=== PATIENT | female | born 1970 | race African-American/Black ===

== ENCOUNTER 2016-10-25 11:22 | Outpatient (CLI) | payer BC ==
[~2016-10-25] VITALS: Ht 170.2 cm; Wt 88.5 kg
[2016-10-25] MEDS ORDERED: ESTR1TAB24 PO (13:18)
== END 2016-10-25 13:19 ==
LOC: PREOP 11:22
PROVIDERS: ATTEND Podiatrist Foot & Ankle Surgery
DX: Z01.818 Encounter for other preprocedural examination (principal); M20.12 Hallux valgus (acquired), left foot

== ENCOUNTER 2016-11-05 06:04 | Day surgery (SDC) | payer BC ==
[~2016-11-05] VITALS: Ht 170.2 cm; Wt 88.5 kg
[~2016-11-05 06:04] MED LIST: ESTR1TAB24 PO
[2016-11-05] MEDS ORDERED: ceFAZolin 1,000 MG (ANCEF) VIAL ONE (06:06)
[2016-11-05] MEDS ORDERED: NS (IVPB) 50 ML ONE (06:07)
[2016-11-05 06:20] VITALS: BP 123/94
[2016-11-05] MEDS: LACTATED RINGERS 1,000 ML IV PRN ×2 (06:42→08:54)
[2016-11-05] MEDS ORDERED: CATHETER FLUSH 10 ML SYR IV PRN (06:45)
[2016-11-05] MEDS ORDERED: ceFAZolin 1 GM/NS 50 ML IVPB IV ONE ×2 (06:45)
[2016-11-05] MEDS ORDERED: LIDOCAINE JELLY 2% (XYLOCAINE) 5 ML TUBE ONE (06:48)
[2016-11-05] MEDS ORDERED: ONDANSETRON 4 MG/2 ML (SDV) Z0FRAN ONE (06:48)
[2016-11-05] MEDS ORDERED: proPOfol 200 MG/20 ML (DIPRIVAN) VIAL IV ONE (06:48)
[2016-11-05] MEDS ORDERED: fentaNYL INJECTION 100 MCG/2 ML AMP ONE (06:48)
[2016-11-05] MEDS ORDERED: LACTATED RINGERS 1,000 ML IV ONE (06:48)
[2016-11-05] MEDS ORDERED: ROCURONIUM 50 MG/5 ML (ZEMURON) VIAL IV ONE (06:48)
[2016-11-05] MEDS ORDERED: LIDOCAINE PF 2% 10 ML (XYLOCAINE) AMP ONE (06:48)
[2016-11-05] MEDS ORDERED: MIDAZOLAM 2 MG/2 ML (VERSED) VIAL ONE (06:49)
[2016-11-05] MEDS ORDERED: LIDOCAINE 1% INJ 20 ML (XYLOCAINE) VIAL ONE (07:18)
[2016-11-05] MEDS ORDERED: BUPIVACAINE 0.5% 30 ML (SENSORCAINE) VIAL ONE (07:18)
[2016-11-05] MEDS ORDERED: DEXAMETHASONE PF 10 MG/ML (DECADRON) VIAL ONE (07:18)
--- NOTE | 2016-11-05 07:42 | Progress Note-Pre Operative ---
Pre-Operative Progress Note H&P Reviewed The H&P was reviewed, patient examined and no changes noted. Date H&P Reviewed: Nov 05, 2016 Time H&P Reviewed: 07:35 Pre-Operative Diagnosis: Hallux Valgus left SHANIQUE MUSA DPM Nov 05, 2016 7:42 am
[2016-11-05] MEDS ORDERED: SEVOFLURANE (ULTANE) 15 ML INHAL SOLN ONE ×2 (08:08→09:23)
[2016-11-05] MEDS ORDERED: MEPERIDINE (DEMEROL) INJ 50 MG/ML IVP PRN (09:00)
[2016-11-05] MEDS ORDERED: ONDANSETRON 4 MG/2 ML (SDV) Z0FRAN IVP PRN ×2 (09:00→09:15)
[2016-11-05] MEDS ORDERED: morphine INJ 10 MG/ML 1ML (SYR OR VIAL) IVP PRN (09:00)
[2016-11-05] MEDS ORDERED: LACTATED RINGERS 1,000 ML IV SCH (09:12)
--- NOTE | 2016-11-05 09:12 | Progress Note-Post Operative ---
Post-Operative Progess Note Surgeon (s)/Registered Midwife (s) Surgeon SHANIQUE MUSA DPM Registered Midwife: NONE Pre-Operative Diagnosis Hallux Valgus left Post-Operative Diagnosis Same Post-Op Procedure Note Date of Procedure: Nov 05, 2016 Name of Procedure Performed: Modified Olvin-Chano bunionectomy left Description of the Procedure: Reduction of bunion left Findings of the Procedure Good reduction of deformity Anesthesia Type General Estimated blood loss (mL): Minimal Packing: None Specimen(s) collected/removed None SHANIQUE MUSA DPM Nov 05, 2016 9:12 am
[2016-11-05] MEDS ORDERED: HYDROcodone/APAP 5 MG/325 MG (LORTAB) TAB PO PRN (09:15)
[2016-11-05] MEDS ORDERED: HYDR-3812 PO (09:15)
[2016-11-05] MEDS ORDERED: CEPH500C PO (09:15)
[2016-11-05 10:10] VITALS: BP 111/81
[2016-11-05 10:40] VITALS: BP 119/90
--- NOTE | 2016-11-05 10:52 | Diagnostic Imaging Report ---
EXAMINATION: 2 views of the left foot. INDICATION: Post bunionectomy. FINDINGS: There is post osteotomies and internal fixation changes seen in the distal first metatarsal and proximal phalanx of the great toe in good alignment. Postoperative changes seen. IMPRESSION: Postoperative changes about the first metatarsal and joint with osteotomies and internal fixation in good position. Dictated by: Dictated on workstation # [id number]
[2016-11-05 11:10] VITALS: BP 118/85
[2016-11-05 11:39] VITALS: BP 118/85
--- NOTE | 2016-11-05 12:12 | Physical Therapy Ortho Eval ---
PT Orthopedic Evaluation Type of Surgery hallux valgus right Prior Level of Function Current Living Status: Spouse Locomotion (Upon Admit): Independent knee scooter and plans to get crutches Subjective Subjective Agreeable to PT. No complaints Entry Into Home: Stairs Without Railing Steps Into Home: 3 Motor Control Motor Control: Motor Control WNL ROM ROM: WFL Strength Strength: WFL Transfer Transfers (B, C, W/C) (FIM): 5 (post eval/treat she was indep) Gait Gait Assistive Device: Crutches Weight Bearing Restriction: Non Weight Bearing Location Restriction: R LE Gait (FIM): 5 (post eval/treat she was mod indep) Summary/Comments safe gait with crutches NWB right LE. No noted LOB episodes. Up/down curb step x 3 reps with SBA. Assessment/Goals Goal Time Frame: 1 Visit Plan Treatment Plan: Discharge PT/Family Agrees to Plan: Yes Time Time In: 1115 Time Out: 1135 Total Billed Treatment Time: 20 Billed Treatment Time visit EVL 20 JOSE WALLACE PT Nov 05, 2016 12:12
--- NOTE | 2016-11-06 08:15 | OPERATIVE REPORT ---
DATE OF SERVICE: 11/05/2016 PREOPERATIVE DIAGNOSIS: Hallux abducto valgus metatarsus primus varus, left. POSTOPERATIVE DIAGNOSIS: Hallux abducto valgus metatarsus primus varus, left. PROCEDURE: Modified Olvin Chano bunionectomy left. CLASS: Clean. ANESTHESIA: General. HEMOSTASIS: Pneumatic thigh tourniquet at 300 mmHg. INDICATION: This 46-year-old female presents complaining of painful bunion left foot, conservative therapy is met with unsatisfactory results and the patient is agreeable to surgical intervention after risks and complications were discussed at length. No guarantees were extended to the patient and she is willing to proceed. PROCEDURE: The patient was brought back to the operating table, placed in secure supine position. Appropriate timeout was performed. Pneumatic thigh tourniquet was placed over the left lower extremity over several layers of padding. The left foot was then prepped and draped in a normal sterile manner. The left foot was then elevated and allowed to exsanguinate after which the tourniquet was inflated to 300 mmHg. Attention was then directed to the dorsal aspect of the left first metatarsal phalangeal joint where a 6 cm longitudinal linear incision was created. The incision was deepened in the same plane with great care to identify and retract all vital neurovascular structures. Only necessary blood vessels were cauterized as encountered. The incision was deepened to the capsular tissue where a longitudinal capsulotomy was performed exposing the hypertrophic medial eminence of the first metatarsal head. The medial eminence of the first metatarsal head was then resected utilizing the Palmar sagittal saw. Next a lateral release was then performed. The conjoin tendon of the adductor hallus was released as well as the fibular sesamoidal ligament and a lateral capsulorrhaphy was performed. The hallux was then forcibly adducted releasing any additional fibers holding it in its abnormal position. Attention was then redirected to the medial aspect of the first metatarsal head where a chevron type osteotomy was performed at the surgical neck allowing the capital fragment to translocate laterally and was fixated in its corrected position with a 0.062 threaded K-wire driven from dorsal proximal to plantar distal across the osteotomy. The remaining medial image of the first metatarsal head and dorsal eminence to the first metatarsal head was resected with a power sagittal saw and further contoured and smoothed with a power nathan. The wound was flushed with copious amounts of normal saline. Attention was then directed to the diaphysis of the proximal phalanx left hallux where subperiosteal dissection was carried out. A wedge of bone was resected with the base medial and lateral cortices held intact. A ship pilot hole was created at the dorsal medial aspect of the osteotomy allowing a 28 gauge monofilament wire to pass through the ship pilot hole securing the osteotomy in a closed position. The wound was flushed with copious amounts of normal saline throughout the procedure. One final flush was then performed and closure was then performed in layers. Deep closure was performed with 3-0 Vicryl, superficial with 4-0 Vicryl, skin closure with 4-0 Prolene in a horizontal mattress type stitch. Postoperative injection consisted of 17 mL of 0.5% Marcaine injected in local infusion to the surgical site. The tourniquet was released and noted appropriate capillary refill time to all digits of the left foot. Postoperative dressing consisted of Betadine soaked adaptic, sterile 4 x 4, sterile Kerlix, all secured with a Coban wrap. The patient tolerated the anesthesia and procedure well and was transported to the recovery room with vital signs stable and vascular status intact to all digits of the left foot. She was given a prescription for Keflex as well as Vicodin. Postoperatively, she is to follow in my office on 11/15 or sooner if necessary. She is to remain nonweightbearing with crutches in the meantime. Job ID: [id number] DocumentID: [id number] Dictated Date: 11/05/2016 09:20:37 Millinery Designer Date: 11/05/2016 11:14:41 Dictated By: SHANIQUE MUSA DPM
== END 2016-11-05 11:51 | disposition home or self-care (01) ==
LOC: SDC 06:04
PROVIDERS: ATTEND Podiatrist Foot & Ankle Surgery
DX: M20.12 Hallux valgus (acquired), left foot (principal); Z11.2 Encounter for screening for other bacterial diseases
CPT/HCPCS: 73620; 87081

== ENCOUNTER 2018-09-23 03:09 | Emergency (ER) | payer BC ==
[~2018-09-23] VITALS: Ht 170.2 cm; Wt 89.4 kg
[~2018-09-23 03:09] MED LIST changes: +ACHD5005 PO; +CEPH500C PO
[2018-09-23] MEDS ORDERED: NS IV 1000 ML 1,000 ML IV STA (03:52)
[2018-09-23] MEDS ORDERED: ONDANSETRON 4 MG/2 ML (SDV) Z0FRAN IVP STA (03:52)
[2018-09-23] MEDS ORDERED: FAMOTIDINE 20MG/2ML IV (PEPCID) IVP STA (03:59)
--- NOTE | 2018-09-23 04:06 | ED GI ---
General Chief Complaint: Abdominal/GI Problems Stated Complaint: VOMITING,DIARRHEA History of Present Illness Date Seen by Provider: Sep 23, 2018 Time Seen by Provider: 03:50 Timing/Duration: 1-3 Hours Severity/Quality: Moderate Location: Epigastric Radiation: No Radiation Activities at Onset: None Modifying Factors: Worsens With Breathing, Worsens With Movement Associated Symptoms: No Chest Pain, No Fever/Chills; Nausea/Vomiting (Diarrhea) 48-year-old female with a history of cholecystectomy, appendectomy, hysterectomy , here for nausea, vomiting, diarrhea and epigastric cramping that began tonight. Nonbilious nonbloody emesis. Nonbloody non-melanotic diarrhea. No fever or chills. No chest pain or shortness of breath. Allergies and Home Medications Allergies Coded Allergies: Sulfa (Sulfonamide Antibiotics) (Unverified Allergy, Mild, HIVES, 09/23/18) doxycycline (Unverified Allergy, Mild, NAUSEA, RASH, 09/23/18) Patient Home Medication List Home Medication List Reviewed: Yes Review of Systems Review of Systems Constitutional: no symptoms reported EENTM: No Symptoms Reported Respiratory: No Symptoms Reported Cardiovascular: No Symptoms Reported Gastrointestinal: See HPI Genitourinary: No Symptoms Reported Musculoskeletal: no symptoms reported Skin: no symptoms reported Psychiatric/Neurological: No Symptoms Reported Endocrine: No Symptoms Reported Hematologic/Lymphatic: No Symptoms Reported Past Xozeogh-Edtwks-Lnyfyn Hx Patient Social History Recent Foreign Travel: No Contact w/Someone Who Travel: No Recent Hopitalizations: No Seasonal Allergies Seasonal Allergies: Yes Past Medical History Appendectomy, Gallbladder, Hysterectomy Irritable Bowel Physical Exam Vital Signs Vital Signs - First Documented 09/23/18 03:45 Temp 96.9 Pulse 103 Resp 18 B/P (MAP) 127/85 (99) Pulse Ox 98 Capillary Refill : Height/Weight/BMI Height: 5'7.00" Weight: 195lbs. 0.0oz. [id number]; 30.5 BMI Method: General Appearance: other (intermittent vomiting of nonbilious nonbloody material) HEENT: normal ENT inspection Neck: supple Respiratory: lungs clear Cardiovascular: normal peripheral pulses, regular rate, rhythm Gastrointestinal: soft, other (mild midepigastric tenderness) Neurologic/Psychiatric: alert, oriented x 3 Skin: warm/dry Progress/Results/Core Measures Results/Orders Lab Results Laboratory Tests Test 09/23/18 04:10 09/23/18 04:44 Range/Units White Blood Count 7.2 4.3-11.0 10^3/uL Red Blood Count 5.02 4.35-5.85 10^6/uL Hemoglobin 14.4 11.5-16.0 G/DL Hematocrit 44 35-52 % Mean Corpuscular Volume 88 80-99 FL Mean Corpuscular Hemoglobin 29 25-34 PG Mean Corpuscular Hemoglobin Concent 33 32-36 G/DL Red Cell Distribution Width 13.4 10.0-14.5 % Platelet Count 261 130-400 10^3/uL Mean Platelet Volume 10.0 7.4-10.4 FL Urine Color DK YELLOW Urine Clarity CLEAR Urine pH 6.0 5-9 Urine Specific [place] 1.025 H 1.016-1.022 Urine Protein NEGATIVE NEGATIVE Urine Glucose (UA) NEGATIVE NEGATIVE Urine Ketones NEGATIVE NEGATIVE Urine Nitrite NEGATIVE NEGATIVE Urine Bilirubin NEGATIVE NEGATIVE Urine Urobilinogen 0.2 NORMAL MG/DL Urine Leukocyte Esterase NEGATIVE NEGATIVE Urine RBC (Auto) TRACE-L NEGATIVE My Orders Orders - ANILA CRISTOBAL DO Ns Iv 1000 Ml (Sodium Chloride 0.9%) (09/23/18 03:52) Ondansetron Injection (Zofran Injectio (09/23/18 03:52) Cbc No Diff (09/23/18 03:59) Comprehensive Metabolic Panel (09/23/18 03:59) Lipase (09/23/18 03:59) Urinalysis Dipstick Only (09/23/18 03:59) Famotidine Injection (Pepcid Injection) (09/23/18 03:59) Vital Signs/I&O 09/23/18 03:45 Temp 96.9 Pulse 103 Resp 18 B/P (MAP) 127/85 (99) Pulse Ox 98 Progress Progress Note #1: Progress Note Mild epigastric pain and tenderness with vomiting and diarrhea, likely viral gastroenteritis. No associated symptoms to suggest ACS and with reproducible tenderness diagnosis is even less likely. We'll check labs including lipase, LFTs, UA. We'll treat with fluids, Zofran, Pepcid. We'll reassess. Progress Note #2: Progress Note Pt feels better, tolerating orals, wants to go home. Departure Impression Primary Impression: Acute gastroenteritis Additional Impression: Dehydration Disposition: HOME, SELF-CARE Condition: Stable Departure-Patient Inst. Referrals: NANI WAYNE MD (PCP/Family) Primary Care Physician Patient Instructions: Viral Gastroenteritis, Adult (DC) Scripts Ondansetron (Ondansetron Odt) 8 Mg Tab.rapdis 8 MG PO TID PRN for NAUSEA/VOMITING-1ST LINE for 7 Days, #30 TAB Prov: ANILA CRISTOBAL DO 09/23/18 ANILA CRISTOBAL DO Sep 23, 2018 04:06
[2018-09-23] MEDS ORDERED: ESTRADIOL 1 MG TABLET (04:35)
[2018-09-23 04:37] LABS: HEMOGLOBIN 14.4 G/DL (11.5-16.0); RED CELL DISTRIBUTION WIDTH 13.4 % (10.0-14.5); WHITE BLOOD COUNT 7.2 10^3/uL (4.3-11.0)
[2018-09-23 04:55] LABS: CLARITY,URINE CLEAR; COLOR,URINE DK YELLOW; GLUCOSE, URINE (UA) NEGATIVE (NEGATIVE); KETONES,URINE NEGATIVE (NEGATIVE); NITRITE,URINE NEGATIVE (NEGATIVE); PROTEIN,URINE NEGATIVE (NEGATIVE)
[2018-09-23 04:56] LABS: BILIRUBIN,URINE NEGATIVE (NEGATIVE); LEUKOCYTE ESTERASE ,URINE NEGATIVE (NEGATIVE); UROBILINOGEN,URINE 0.2 MG/DL (NORMAL)
[2018-09-23 05:13] LABS: ALANINE AMINOTRANSFERASE 21 U/L (0-55); ALKALINE PHOSPHATASE 52 U/L (40-136); BILIRUBIN,TOTAL 0.4 MG/DL (0.1-1.0); BUN/CREATININE RATIO 24; CALCIUM 9.6 MG/DL (8.5-10.1); CARBON DIOXIDE 20 MMOL/L (21-32); CHLORIDE 100 MMOL/L (98-107); CREATININE SERUM 1.03 MG/DL (0.60-1.30); GFR ESTIMATED > 60; GLUCOSE 145 MG/DL (70-105); POTASSIUM 3.8 MMOL/L (3.6-5.0); SODIUM 140 MMOL/L (135-145); TOTAL PROTEIN 8.2 GM/DL (6.4-8.2)
[2018-09-23 05:14] LABS: ALBUMIN 4.4 GM/DL (3.2-4.5)
[2018-09-23] MEDS ORDERED: ONDA8TAB13 PO (05:15)
[2018-09-23 05:21] LABS: LIPASE 19 U/L (8-78)
[2018-09-23 05:34] VITALS: BP 110/68
--- OUTSIDE RECORDS SUMMARY | 2018-09-23 07:17 | XMS REPORT | Clinical Summary ---
Author Author [facility] Organization [facility] Address Unknown Phone Unavailable Care Team Providers Care Assistant Professor Of Communication Name Role Phone PCP Unavailable Allergies Not on File Current Medications Not on file Active Problems Not on file Social History Tobacco Use Types Packs/Day Years Used Date Never Assessed Sex Assigned at Date Recorded Not on file Last Filed Vital Signs Not on file Plan of Treatment Not on file Results Not on filefrom Last 3 Months
== END 2018-09-23 05:34 ==
LOC: EDUNIT# 03:09 → ER FS 03:12
DX: K52.9 Noninfective gastroenteritis and colitis, unspecified (principal); E86.0 Dehydration; K58.9 Irritable bowel syndrome, unspecified; Z88.2 Allergy status to sulfonamides; Z88.1 Allergy status to other antibiotic agents; Z90.49 Acquired absence of other specified parts of digestive tract; Z90.710 Acquired absence of both cervix and uterus
CPT/HCPCS: 36415; 80053; 81002; 83690; 85027

== ENCOUNTER → 2019-01-14 | Outpatient (CLI) | payer BC ==
[~2019-01-14] MED LIST changes: +ESTRADIOL 1 MG TABLET; +ONDA8TAB13 PO
--- NOTE | 2019-01-14 12:52 | Diagnostic Imaging Report ---
PATIENT HISTORY: FLANK PAIN, BLOOD IN URINE. TECHNIQUE: Frontal view of the abdomen COMPARISON: None FINDINGS: Bowel loops are nondistended without obstruction. There is moderate stool in the right colon. Surgical clips are seen in the right upper quadrant and the right lower quadrant. No calcifications are seen about the kidneys or in the expected location of the ureters. Multiple phleboliths are seen in the pelvis, and a distal ureteral calculus is difficult to exclude. IMPRESSION: 1. No calculi are seen in the kidneys or along the expected course of the ureters. Multiple phleboliths are in the pelvis and a distal ureteral calculus is difficult to exclude. If indicated, further evaluation could be performed with CT. 2. Moderate stool in the right colon with no bowel obstruction seen. Dictated by: Dictated on workstation # [id number]
== END ==
LOC: RAD FS 12:26
PROVIDERS: ATTEND Nurse Practitioner Family
DX: I87.8 Other specified disorders of veins (principal); R31.9 Hematuria, unspecified; R10.9 Unspecified abdominal pain; Z98.890 Other specified postprocedural states
CPT/HCPCS: 74018

== ENCOUNTER → 2019-11-09 | Outpatient (CLI) | payer BC ==
--- NOTE | 2019-11-09 15:02 | Diagnostic Imaging Report ---
INDICATION: Low back pain. TIME OF EXAM: 2:13 PM. TECHNIQUE: Three views of the lumbar spine were obtained. FINDINGS: There is mild straightening of the normal lumbar lordotic curvature. The vertebral body heights are maintained. No acute compression fracture is seen. There is some mild generalized lumbar spondylosis with variable disc space narrowing and marginal spurring. IMPRESSION: Mild lumbar spondylosis. No acute bony abnormality is detected. Dictated by: Dictated on workstation # [id number]
== END ==
LOC: RAD FS 14:01
PROVIDERS: ATTEND Nurse Practitioner
DX: M47.816 Spondylosis without myelopathy or radiculopathy, lumbar region (principal)
CPT/HCPCS: 72100

== ENCOUNTER → 2020-07-21 | Outpatient (CLI) | payer BC ==
--- NOTE | 2020-07-21 09:44 | Diagnostic Imaging Report ---
Indication: Lower back pain. Nausea and vomiting. Epigastric pain. COMPARISON: 01/14/2019 FINDINGS: 2 frontal radiographic views of the abdomen and pelvis were obtained. Small bowel loops are nondistended. There is no large collection of free intraperitoneal air. No unexpected extraosseous calcifications or radiopaque foreign bodies are seen. Osseous structures show no acute abnormalities. IMPRESSION: 1. Nonobstructed small bowel gas pattern. Dictated by: Dictated on workstation # [id number]
== END ==
LOC: RAD FS 08:52
PROVIDERS: ATTEND Nurse Practitioner Family
DX: M54.5 Low back pain (principal); R10.13 Epigastric pain; R11.2 Nausea with vomiting, unspecified
CPT/HCPCS: 74018

== ENCOUNTER 2020-11-03 21:48 | Emergency (ER) | payer BC, OTHER ==
[~2020-11-03] VITALS: Ht 170.1 cm; Wt 106.3 kg
[2020-11-03 22:20] LABS: HEMATOCRIT 38 % (35-52); HEMOGLOBIN 12.7 G/DL (11.5-16.0); MEAN CORPUSCULAR HEMOGLOBIN 30 PG (25-34); MEAN CORPUSCULAR HGB CONC 33 G/DL (32-36); MEAN CORPUSCULAR VOLUME 89 FL (80-99); MEAN PLATELET VOLUME 10.2 FL (7.4-10.4); PLATELET COUNT 247 10^3/uL (130-400); WHITE BLOOD COUNT 4.2 10^3/uL (4.3-11.0)
[2020-11-03 22:21] LABS: BASOPHILS % (AUTO) 0 % (0-10); EOSINOPHILS # (AUTO) 0.1 10^3/uL (0.0-0.3); EOSINOPHILS % (AUTO) 1 % (0-10); LYMPHOCYTES # (AUTO) 2.2 X 10^3 (1.0-4.0); LYMPHOCYTES % (AUTO) 52 % (12-44); MONOCYTES # (AUTO) 0.3 X 10^3 (0.0-1.0); MONOCYTES % (AUTO) 7 % (0-12); NEUTROPHILS # (AUTO) 1.6 X 10^3 (1.8-7.8); NEUTROPHILS % (AUTO) 39 % (42-75)
[2020-11-03 22:36] LABS: SMEAR SCAN COMMENT OK
[2020-11-03 22:47] LABS: POTASSIUM 3.8 MMOL/L (3.6-5.0); SODIUM 134 MMOL/L (135-145)
[2020-11-03 22:48] LABS: BUN/CREATININE RATIO 18; CALCIUM 8.9 MG/DL (8.5-10.1); CARBON DIOXIDE 23 MMOL/L (21-32); CHLORIDE 100 MMOL/L (98-107); CREATININE SERUM 0.89 MG/DL (0.60-1.30); GFR ESTIMATED > 60; GLUCOSE 182 MG/DL (70-105); MAGNESIUM 1.8 MG/DL (1.6-2.4)
--- NOTE | 2020-11-03 23:04 | ED General ---
General Chief Complaint: General Problems/Pain Stated Complaint: SWELLING IN BOTH LEGS/TINGLING Nursing Triage Note: Patient states that she started having lower leg swelling about two weeks ago. She saw her primary care physician and they prescribed her HCTZ, which she states she has not gotten any relief. Patient started having pain on the back of the left knee with numbness down the front portion of the leg. Patient states that she had gotten the [employer] Covid vaccine and she got worried and came in. Nursing Sepsis Screen: No Definite Risk Source of Information: Patient History of Present Illness Date Seen by Provider: Nov 03, 2020 Time Seen by Provider: 22:00 Initial Comments Patient is a 50-year-old female who presents with bilateral leg swelling x2 weeks with tingling and swelling to left leg the past several days and tenderness behind left knee. Symptoms are mild. No trauma repetitive strain injuries. Patient states she received the [employer] Martin Covid vaccination in the past 2 weeks and she is concerned about possible blood clot. She denies chest pain palpitations, shortness of breath. No history of DVT or PE. Patient does not take exogenous hormones. No other symptoms or complaints. Timing/Duration: Other Severity: Mild Modifying Factors: improves with Other Associated Systoms: Other Allergies and Home Medications Allergies Coded Allergies: Sulfa (Sulfonamide Antibiotics) (Unverified Allergy, Mild, HIVES, 09/23/18) doxycycline (Unverified Allergy, Mild, NAUSEA, RASH, 09/23/18) Home Medications Ondansetron 8 Mg Tab.rapdis, 8 MG PO TID PRN for NAUSEA/VOMITING-1ST LINE Prescribed by: ANILA CRITSOBAL on 09/23/18 0515 Patient Home Medication List Home Medication List Reviewed: Yes Review of Systems Review of Systems Constitutional: see HPI EENTM: see HPI Respiratory: see HPI Cardiovascular: see HPI Genitourinary: see HPI Skin: see HPI Psychiatric/Neurological: See HPI Hematologic/Lymphatic: See HPI Immunological/Allergic: see HPI All Other Systems Reviewed Negative Unless Noted: Yes Past Scipgbg-Ijonup-Rmpays Hx Past Med/Social Hx: Reviewed Nursing Past Med/Soc Hx Patient Social History Alcohol Use: Denies Use Smoking Status: Never a Smoker 2nd Hand Smoke Exposure: No Recent Infectious Disease Expo: No Recent Hopitalizations: No Seasonal Allergies Seasonal Allergies: No Past Medical History Surgeries: Yes Appendectomy, Gallbladder, Hysterectomy Respiratory: No Cardiac: No Neurological: No INSEAM TRIMMER History: Hysterectomy Genitourinary: No Gastrointestinal: No Irritable Bowel Musculoskeletal: No Endocrine: No HEENT: No Cancer: No Psychosocial: No Integumentary: No Blood Disorders: No Physical Exam Vital Signs Vital Signs - First Documented 11/03/20 21:52 Temp 36.8 Pulse 100 Resp 18 B/P (MAP) 161/104 (123) Pulse Ox 99 O2 Delivery Room Air Capillary Refill : Greater Than 3 Seconds Height, Weight, BMI Height: 5'7.00" Weight: 197lbs. 0.0oz. 89.828697ny; 36.00 BMI Method:Stated General Appearance: No Apparent Distress Eyes: Bilateral Eye Normal Inspection, Bilateral Eye PERRL, Bilateral Eye EOMI Extremity: Swelling (Left leg swelling in comparison to right. No calf tenderness. Negative Homans signs.) Neurologic/Psychiatric: No Motor/Sensory Deficits Progress/Results/Core Measures Suspected Sepsis Recent Fever Within 48 Hours: No Infection Criteria Present: None New/Unexplained Altered Menta: No Sepsis Screen: No Definite Risk SIRS Temperature: Pulse: 100 Respiratory Rate: 18 Laboratory Tests 11/03/20 22:11: White Blood Count 4.2L Blood Pressure 161 /104 Mean: 123 Laboratory Tests 11/03/20 22:11: Creatinine 0.89, Platelet Count 247 Results/Orders Lab Results Laboratory Tests Test 11/03/20 22:11 Range/Units White Blood Count 4.2 L 4.3-11.0 10^3/uL Red Blood Count 4.27 L 4.35-5.85 10^6/uL Hemoglobin 12.7 11.5-16.0 G/DL Hematocrit 38 35-52 % Mean Corpuscular Volume 89 80-99 FL Mean Corpuscular Hemoglobin 30 25-34 PG Mean Corpuscular Hemoglobin Concent 33 32-36 G/DL Red Cell Distribution Width 13.7 10.0-14.5 % Platelet Count 247 130-400 10^3/uL Mean Platelet Volume 10.2 7.4-10.4 FL Immature Granulocyte % (Auto) 0 % Neutrophils (%) (Auto) 39 L 42-75 % Lymphocytes (%) (Auto) 52 H 12-44 % Monocytes (%) (Auto) 7 0-12 % Eosinophils (%) (Auto) 1 0-10 % Basophils (%) (Auto) 0 0-10 % Neutrophils # (Auto) 1.6 L 1.8-7.8 X 10^3 Lymphocytes # (Auto) 2.2 1.0-4.0 X 10^3 Monocytes # (Auto) 0.3 0.0-1.0 X 10^3 Eosinophils # (Auto) 0.1 0.0-0.3 10^3/uL Basophils # (Auto) 0.0 0.0-0.1 10^3/uL Immature Granulocyte # (Auto) 0.0 0.0-0.1 10^3/uL D-Dimer 0.62 H 0.00-0.49 UG/ML Sodium Level 134 L 135-145 MMOL/L Potassium Level 3.8 3.6-5.0 MMOL/L Chloride Level 100 98-107 MMOL/L Carbon Dioxide Level 23 21-32 MMOL/L Anion Gap 11 5-14 MMOL/L Blood Urea Nitrogen 16 7-18 MG/DL Creatinine 0.89 0.60-1.30 MG/DL Estimat Glomerular Filtration Rate > 60 BUN/Creatinine Ratio 18 Glucose Level 182 H 70-105 MG/DL Calcium Level 8.9 8.5-10.1 MG/DL Magnesium Level 1.8 1.6-2.4 MG/DL Pro-B-Type Natriuretic Peptide 14.1 <75.0 PG/ML Smear Scan OK My Orders Orders - SILVIO MABRY DO Cbc With Automated Diff (11/03/20 22:07) Basic Metabolic Panel (11/03/20 22:07) Fibrin Degradation Products (11/03/20 22:07) Probnp Fs (11/03/20 22:07) Magnesium (11/03/20 22:07) Vital Signs/I&O 11/03/20 21:52 Temp 36.8 Pulse 100 Resp 18 B/P (MAP) 161/104 (123) Pulse Ox 99 O2 Delivery Room Air Capillary Refill : Greater Than 3 Seconds Blood Pressure Mean: 123 Departure Communication (Admissions) Patient's blood sugar is 187. Denies history of diabetes. Suspect he the patient is a type II diabetic or prediabetic. Patient's D-dimer is also mildly elevated. I discussed this result in detail with patient and explained to her that a DVT cannot be ruled out this evening due to the lack of availability of ultrasound at this facility. The patient denies chest pain palpitations and shortness of breath. I did offer to order a shot of Lovenox and treat empirically for possible DVT with instructions to follow-up with her primary care doctor in the morning to obtain an outpatient venous Doppler ultrasound. Patient understands this will not be ordered by the emergency department but that it is her responsibility to contact her PCP's office where the study performed. Patient verbalizes understanding agreement with discharge instructions prior to departure. Return precautions reviewed Impression Primary Impression: Hyperglycemia Additional Impressions: Left leg pain Positive D dimer Disposition: HOME, SELF-CARE Condition: Stable Departure-Patient Inst. Referrals: [facility] (PCP) Primary Care Physician CECILIA RICHARDS APRN (Family) Primary Care Physician Patient Instructions: Prediabetes (DC) Add. Discharge Instructions: Please contact your primary care provider in the morning regarding ordering an outpatient ultrasound for evaluation of blood clot in your left leg. Please arrange to follow-up with your PCP for diabetes testing. Return to the ED if you develop new or concerning symptoms. All discharge instructions reviewed with patient and/or family. Voiced understanding. SILVIO MABRY DO Nov 03, 2020 23:04
[2020-11-03 23:06] VITALS: BP 135/83
== END 2020-11-03 23:06 | disposition home or self-care (01) ==
LOC: EDUNIT# 21:48 → ER FS 21:50
DX: R73.9 Hyperglycemia, unspecified (principal); M79.605 Pain in left leg; Z88.2 Allergy status to sulfonamides; Z88.1 Allergy status to other antibiotic agents
CPT/HCPCS: 36415; 80048; 83735; 83880; 85025; 85379